=== PATIENT | female | born 1965 | race Caucasian/White ===

== ENCOUNTER → 2020-05-04 11:58 | Outpatient (BNVA) | payer SELFPAY | PROVIDERS: Visit Provider Nurse Practitioner | DX: E03.9 Hypothyroidism, unspecified (principal); I10 Essential (primary) hypertension | CPT/HCPCS: 80053; 80061; 84443 ==

== ENCOUNTER → 2020-05-21 10:50 | Outpatient (BNVA) | payer OTHER, SELFPAY | PROVIDERS: Visit Provider Nurse Practitioner Family | DX: Z20.822 Contact with and (suspected) exposure to COVID-19 (principal) | CPT/HCPCS: 87635 ==

== ENCOUNTER 2020-10-16 15:25 | Outpatient (CLI) | payer OTHER, SELFPAY ==
--- NOTE | 2020-10-16 15:32 | MM_ITS ---
WS: [id number] BILATERAL SCREENING DIGITAL MAMMOGRAM WITH CAD HISTORY: SCREENING COMPARISON: 09/13/2016 Bilateral CC and MLO views submitted. Computer aided detection analyzed. Breast composition: There are scattered areas of fibroglandular density. No suspicious masses, microc alcifications or architectural distortion. MM/[id number] IMPRESSION: BI-RADS: 1-Negative FOLLOW UP: 1 Year Follow-up
== END 2020-10-16 15:26 | disposition home or self-care (01) ==
LOC: RADSHAW 15:29
PROVIDERS: Visit Provider Nurse Practitioner
DX: Z12.31 Encounter for screening mammogram for malignant neoplasm of breast (principal)
CPT/HCPCS: 77067

== ENCOUNTER → 2021-01-26 14:20 | Outpatient (BNVA) | payer SELFPAY | PROVIDERS: PCP Nurse Practitioner; Visit Provider Nurse Practitioner | DX: I10 Essential (primary) hypertension (principal); R74.8 Abnormal levels of other serum enzymes; J98.01 Acute bronchospasm | CPT/HCPCS: 80053; 80061; 84443; 86705; 86706; 86709; 86803; 87340 ==

== ENCOUNTER → 2021-05-18 15:14 | Outpatient (BNVA) | payer OTHER, SELFPAY | PROVIDERS: PCP Nurse Practitioner; Visit Provider Nurse Practitioner Family | DX: Z20.822 Contact with and (suspected) exposure to COVID-19 (principal) | CPT/HCPCS: 87635 ==

== ENCOUNTER 2024-03-06 19:48 | Inpatient (IN) | payer SELFPAY ==
[2024-03-06 19:49] VITALS: BP 163/107; PULSE 68; RESP 18; TEMP 37.1; O2SAT 100; BMI 28.0
--- NOTE | 2024-03-06 20:13 | ED.C_ITS ---
HPI - Psych 2 General: Chief Complaint: Psychiatric Symptoms Stated Complaint: MHE Time Seen by Provider: 03/06/24 19:51 History of Present Illness: 58-year-old female with a history of hyp ertension who presents to the emergency room with psychiatric issues. She presents by ambulance. Her had called the ambulance. She is very paranoid and scared. Apparently she has been hallucinating. There is no documented history of any kind of psychiatric issues. states that she had had some short-term memory issues but recently had been functioning well doing housecleaning and other daily living things. They recently went to [place] and she had not taken her thyroid medication for a few days. Here in the emergency room she is very agitated. She is intent that she does not want to go on a roommate but rather room 7. She is very paranoid. Difficult to obtain any other history from. Related Data Previous Rx's Medication Instructions Recorded albuterol sulfate 90 mcg/actuation 2 puff inhalation Q6H PRN 01/01/24 aerosol inhaler shortness of breath or wheezing #8.5 grams budesonide-formoterol HFA 160 2 puff inhalation Q12H #10.2 grams 01/01/24 mcg-4.5 mcg/actuation aerosol inhaler (Symbicort) inhalational spacing device #1 ea 01/01/24 (Aerochamber MV spacer) losartan 100 1 tab PO DAILY #90 tabs 01/01/24 mg-hydrochlorothiazide 25 mg tablet thyroid (pork) 90 mg tablet 90 mg PO DAILY #90 tabs 01/01/24 ([place] Thyroid) Allergies Allergy/AdvReac Type Severity Reaction Status Date / Time No Known Allergies Allergy Verified 01/01/24 14:56 Review of Systems 2 General: Reports: ROS unobtainable due to mental status PFSH ED 2 PFSH: Medical History Condyloma acuminatum due to human papillomavirus (HPV) Essential (primary) hypertension Hypothyroidism Skin cancer of nose three times/2017 Basal and Squamous Skin cancer of lip 2018 Surgical History History of cardiovascular stress test 2017 in [facility] History of tonsillectomy History of hysterectomy Left cervix and ovaries Family History Grandmother Hyperthyroidism Other Cancer Hypertension Denies family history of Diabetes Clotting disorder Dementia Chronic kidney disease (CKD) Social History Smoking and tobacco/nicotine status: never used tobacco/nicotine Second hand smoke exposure: No Alcohol intake: current Alcohol intake frequency: 0-2 Drinks per Day Alcohol type: wine Substance/Drug Use: never Adopted: No Caregiver/support person: No Lives independently: Yes Household members: spouse Housing: House Marital status: Number of children: 0 Number of grandchildren: 0 service: No Current occupational status: unemployed Do you think of yourself as: Straight/Heterosexual Current gender identity: Female Physical Exam 2 Narrative: EXAM NARRATIVE: General: Alert. no acute distress Skin: Warm, dry Head: Normocephalic, atraumatic. Neck: Supple, trachea midline. Eye: Extraocular movements are intact. Ears, nose, mouth and throat: Oral mucosa moist. Cardiovascular: Regular rate and rhythm, Normal peripheral perfusion. Respiratory: Lungs are clear to auscultation, respirations are non-labored, breath sounds are equal, Symmetrical chest wall expansion. Gastrointestinal: Soft, Nontender, Non distended, Normal bowel sounds. Musculoskeletal: Normal ROM, no deformity. Neurological: Unable to assess orientation, No focal neurological deficit observed. Psychiatric: Patient seems somewhat confused. Paranoid. Odd affect. Course 2 Vital Signs: Vital signs: Vital Signs Temperature 98.7 F 03/06/24 19:49 Pulse Rate 68 03/06/24 19:49 Respiratory Rate 18 03/06/24 19:49 Blood Pressure 163/107 03/06/24 19:49 Pulse Oximetry 100 03/06/24 19:49 Oxygen Delivery Me thod Room Air 03/06/24 19:49 MDM - Psych Medical Decision Making Medical decision making: Differential diagnosis for patient with reported psychosis with plan for psychiatric admission including but not limited to and based on the above HPI, review of systems and physical exam: concerns for infection, alcohol intoxication, cardiac issues or other medical problems prior to psychiatric admission. Orders placed to evaluate differential diagnosis based on the above differential, HPI and physical exam labwork, ekg ordered to evaluate the pathologies and to clear the patient medically prior to psychiatric admission CT head: No acute intracranial process. no intracranial hemorrhage, no evidence of infarct. no evidence of acute fracture.This was reviewed and interpreted by myself the ER physician. Lab Review: Laboratory results were reviewed and interpreted by myself the emergency room physician. - Medically cleared. - EKG shows no ischemic changes. - Blood alcohol level is negative, as well as salicylate and Tylenol. - Drug screen is negative - No signs of infection, urinalysis clear and white count is not elevated - No anemia. - BUN and creatinine are within normal limits. I reviewed the patient's medical record. Consultation: I spoke with Dr. Hayes who agrees to admission of the patient. No beds today but there will be some tomorrow so we will hold here in the emergency room until room is clear. Assessment and plan: Acute psychosis Paranoia Hallucinations -Admission to neuropsychiatric unit for continued evaluation and treatment. - All lab work was reviewed and interpreted personally by myself, the ER physician - Evaluation and treatment of this problem were appropriate in the emergency setting Lab Data 03/06/24 21:34 03/06/24 21:[address] 03/06/24 21:40 IMPRESSION: No acute intracranial abnormality. Laboratory Results WBC 8.74 10^3/uL (3.29-11.43) 03/06/24 21: RBC 5.00 10^6/uL (3.85-5.65) 03/06/24 21:34 Hgb 14.90 g/dL (11.27-16.99) 03/06/24 21:34 Hct 45.4 % (36-47) 03/06/24 21: MCV 90.8 fl (85-98) 03/06/24 21:34 MCH 29.8 pg (27-33) 03/06/24 21: MCHC 32.8 g/dL (30-55) 03/06/24 21: RDW 12.4 % (12.1-15.1) 03/06/24 21:34 Plt Count 304 10^3/cmm (157-399) 03/06/24 21:34 MPV 10.1 fL (7.4-10.4) 03/06/24 21: Neut % (Auto) 75.0 % 03/06/24 21:34 Lymph % (Auto) 16.8 % 03/06/24 21:34 Trigg % (Auto) 6.5 % 03/06/24 21:34 Eos % (Auto) 0.9 % 03/06/24 21:34 Baso % (Auto) 0.5 % 03/06/24 21:34 Neut # (Auto) 6.55 10^3/uL (1.8-7.7) 03/06/24 21:34 Lymph # (Auto) 1.5 10^3/uL (0.8-4.8) 03/06/24 21:34 Trigg # (Auto) 0.6 10^3/uL (0.2-0.9) 03/06/24 21: Eos # (Auto) 0.1 10^3/uL (0.0-0.8) 03/06/24 21: Baso # (Auto) 0.0 10^3/uL (0.0-0.1) 03/06/24 21:34 Nucleated RBC % (auto) 0 % 03/06/24 21:34 Nucleated RBCs # 0.0 /100WBC 03/06/24 21:34 Sodium 137 mmol/L (136-145) 03/06/24 21:34 Potassium 4.3 mmol/L (3.5-5.1) 03/06/24 21:34 Chloride 95 mmol/L (98-107) L 03/06/24 21:34 Carbon Dioxide 33 mmol/L (22-29) H 03/06/24 21:34 Anion Gap 13.3 (5-19) 03/06/24 21:34 BUN 8 mg/dL (6-20) 03/06/24 21:34 Creatinine 0.7 mg/dL (0.5-0.9) 03/06/24 21:34 GFR Calculation 85.6 mL/min (90-130) L 03/06/24 21:34 Glucose 152 mg/dL (65-115) H 03/06/24 21:34 Calculated Osmolality 285 mOsm/kg (285-295) 03/06/24 21:34 Calcium 9.6 mg/dL (8.5-10.5) 03/06/24 21:34 Total Bilirubin 0.4 mg/dL (0.15-1.2) 03/06/24 21:34 AST 28 U/L (0-32) 03/06/24 21:34 ALT 31 U/L (0-33) 03/06/24 21:34 Alkaline Phosphatase 110 U/L (35-105) H 03/06/24 21:34 Total Protein 7.3 g/dL (6.6-8.7) 03/06/24 21:34 Albumin 4.6 g/dL (3.5-5.2) 03/06/24 21:34 Globulin 2.7 g/dL (1.3-4.6) 03/06/24 21:34 TSH 3.88 uIU/mL (0.27-4.20) 03/06/24 21:34 Urine Color Yellow (Yellow) 03/06/24 20: Urine Appearance Clear (CLEAR) 03/06/24 20: Urine pH 7.5 (5-7) 03/06/24 20: Ur Specific Nelson 1.007 (1.005-1.030) 03/06/24 20: Urine Protein Negative (Negative) 03/06/24 20: Urine Glucose (UA) Negative (Normal) 03/06/24 20: Urine Ketones Negative (Negative) 03/06/24 20: Urine Blood Negative (Negative) 03/06/24 20: Urine Nitrate Negative (Negative) 03/06/24 20: Urine Bilirubin Negative (Negative) 03/06/24 20: Urine Urobilinogen 1.0 mg/dL (Negative) 03/06/24 20: Ur Leukocyte Esterase Negative (Negative) 03/06/24 20: Urine RBC 0-2 /hpf (0-2) 03/06/24 20: Urine WBC 0-5 /hpf (0-5) 03/06/24 20: Ur Squamous Epith Cells 0-5 /hpf (0-5) 03/06/24 20: Amorphous Sediment Not Reportable 03/06/24 20: Urine Bacteria None seen /hpf (NONE) 03/06/24 20: Hyaline Casts 0-4 /lpf H 03/06/24 20: Salicylates 0.4 mg/dL (3-10) L 03/06/24 21: Urine Opiates Screen Negative ng/mL (Negative) 03/06/24 20:26 Acetaminophen < 5.0 ug/mL (10-30) L 03/06/24 21:34 Ur Barbiturates Screen Negative ng/mL (Negative) 03/06/24 20:26 Ur Phencyclidine Scrn Negative ng/mL (Negative) 03/06/24 20:26 Ur Amphetamines Screen Negative ng/mL (Negative) 03/06/24 20:26 U Benzodiazepines Scrn Negative ng/mL (Negative) 03/06/24 20:26 Urine Cocaine Screen Negative ng/mL (Negative) 03/06/24 20:26 U Marijuana (THC) Screen Negative ng/mL (Negative) 03/06/24 20:26 Ethyl Alcohol < 10 mg/dL (0-10) 03/06/24 21:34 All radiology interpretation(s) finalized by discharge Discharge Plan Discharge Patient Disposition: Admitted As Inpatient Admit Provider: Marcos Hayes Clinical Impression: Acute psychosis, Acute paranoia Condition: Stable Coding Level of Care Code ED Glove Cuffer for Chintan Brothers
[2024-03-06 20:36] LABS: Bilirubin Urine Negative (Negative); Blood Urine Negative (Negative); Glucose Urine UA Negative (Normal); Ketones Urine Negative (Negative); Leukocyte Esterase Urine Negative (Negative); Nitrate Urine Negative (Negative); Protein Urine Negative (Negative); Specific Gravity, Urine 1.007 (1.005-1.030); Urine Appearance Clear (CLEAR); Urine Color Yellow (Yellow); pH Urine 7.5 (5-7)
[2024-03-06 20:38] LABS: Bacteria Urine None Seen /hpf; Hyaline Casts Urine 0-4 /lpf; RBC Urine 0-2 /hpf (0-2); Squamous Epithelial Cell Urine 0-5 /hpf (0-5); WBC Urine 0-5 /hpf (0-5)
[2024-03-06 20:44] LABS: Amphetamines Screen Urine Negative (Negative); Barbiturates Screen Urine Negative (Negative); Benzodiazepines Screen Urine Negative (Negative); Cocaine Screen Urine Negative (Negative); Opiate Screen Urine Negative (Negative); PCP Screen Urine Negative (Negative); THC Screen Urine Negative (Negative)
[2024-03-06] MEDS: LORazepam 2 mg/mL INJ 1 mL IM (21:17)
[2024-03-06] MEDS: water for injection-sterile 10 ML 1.2 ML (21:21)
--- NOTE | 2024-03-06 21:33 | PC.NURSE ---
this rn spoke with on the phone. told this RN that the patient has had increasing paranoia the last 2 days with insomnia. per , pt has only had 1 episode requiring psychiatric care 20 years ago in [place]. pt takes a thyroid pill and losartan per . he states she is slow at processing things but can cook, clean, and check the mail as normal. she did not take her thyroid pill for 5 days while in [place] per . notified of conversation.
--- NOTE | 2024-03-06 21:40 | CTR_ITS ---
PROCEDURE INFORMATION: Exam: CT Head Without Contrast Exam date and time: 03/06/2024 9:50 PM Age: 58 years old Clinical indication: Altered mental status/memory loss; Additional info: Encephalopathy, altered mental status TECHNIQUE: Imaging protocol: Computed tomography of the head without contrast. Radiation optimization: All CT scans at this facility use at least one of these dose optimization techniques: automated exposure control; mA and/or kV adjustment per patient size (includes targeted exams where dose is matched to clinical indication); or iterative reconstruction. COMPARISON: No relevant prior studies available. RADIATION DOSE METRICS: Total DLP (mGy-cm): 1149.13 FINDINGS: Brain: No acute intracranial abnormality. Cerebral ventricles: No ventriculomegaly. Paranasal sinuses: Visualized sinuses are unremarkable. No fluid levels. Mastoid air cells: Visualized mastoid air cells are well aerated. Bones: Unremarkable. No acute fracture. Soft tissues: Unremarkable. CT/CT head wo con* [id number] IMPRESSION: No acute intracranial abnormality.
[2024-03-06 21:41] LABS: Basophils % 0.5 %; Eosinophils # 0.1 10^3/uL (0.0-0.8); Eosinophils % 0.9 %; Hematocrit 45.4 % (36-47); Lymphocytes # 1.5 10^3/uL (0.8-4.8); Lymphocytes % 16.8 %; Mean Corpuscular HGB Conc 32.8 g/dL (30-55); Mean Corpuscular Hemoglobin 29.8 pg (27-33); Mean Corpuscular Volume 90.8 fl (85-98); Mean Platelet Volume 10.1 fL (7.4-10.4); Monocytes # 0.6 10^3/uL (0.2-0.9); Monocytes % 6.5 %; Neutrophils # 6.55 10^3/uL (1.8-7.7); Nucleated Red Blood Cells % 0 %; Platelet Count 304 10^3/cmm (157-399); Red Cell Distribution Width 12.4 % (12.1-15.1); White Blood Count 8.74 10^3/uL (3.29-11.43)
[2024-03-06 22:11] LABS: Acetaminophen < 5.0 ug/mL (10-30); Alanine Aminotransferase 31 U/L (0-33); Albumin Level 4.6 g/dL (3.5-5.2); Alcohol Level < 10 mg/dL (0-10); Alkaline Phosphatase 110 U/L (35-105); Anion Gap 13.3 (5-19); Aspartate Amino Transferase 28 U/L (0-32); Blood Urea Nitrogen 8 mg/dL (6-20); Calcium 9.6 mg/dL (8.5-10.5); Carbon Dioxide 33 mmol/L (22-29); Chloride 95 mmol/L (98-107); Creatinine Clr Calc Pharmacy 101.3532; Globulin 2.7 g/dL (1.3-4.6); Glomerular Filtration Rate 85.6 mL/min (90-130); Glucose 152 mg/dL (65-115); Osmolality Calculated 285 mOsm/kg (285-295); Potassium 4.3 mmol/L (3.5-5.1); Salicylate 0.4 mg/dL (3-10); Sodium 137 mmol/L (136-145); Total Bilirubin 0.4 mg/dL (0.15-1.2); Total Protein 7.3 g/dL (6.6-8.7)
[2024-03-06 22:19] LABS: Thyroid Stimulating Hormone 3.88 uIU/mL (0.27-4.20)
--- NOTE | 2024-03-06 23:11 | PC.NURSE ---
96 Hour Involuntary Patient Hold Rights have been discussed with the patient and a copy of the same has been provided to her. Senior Business Analyst Bebe Estes was present at bedside at the time of presentation of Rights.
[2024-03-07] VITALS (7 sets, daily range): BP systolic 135–152; BP diastolic 71–101; PULSE 65–79; RESP 14–18; TEMP 36.3–36.7; O2SAT 97–99
--- NOTE | 2024-03-07 09:09 | PC.PHAR ---
Patient states she is no longer taking the Albuterol inhALER OR THE sYMBICORT THAT THEY MAKE HER SICK . pATIENT ALSO STATES she is allergic to aerosols and smoke .
--- NOTE | 2024-03-07 17:42 | P.NPUHP_ITS ---
Providers/Chief Complaint 2 Admitting Physician: Marcos Hayes MD Primary Care Provider: CARMEN Armijo Chief Complaint: MHE HPI NPU History of Present Illness oLrna Schmitz is a 58 year old female who presented to the emergency department with the following report: Chief Complaint: Psychiatric Symptoms Stated Complaint: MHE Time Seen by Provider: 03/06/24 19:51 History of Present Illness: 58-year-old female with a history of hypertension who presents to the emergency room with psychiatric issues. She presents by ambulance. Her had called the ambulance. She is very paranoid and scared. Apparently she has been hallucinating. There is no documented history of any kind of psychiatric issues. states that she had had some short-term memory issues but recently had been functioning well doing housecleaning and other daily living things. They recently went to [place] and she had not taken her thyroid medication for a few days. Here in the emergency room she is very agitated. She is intent that she does not want to go on a roommate but rather room 7. She is very paranoid. Difficult to obtain any other history from. She was admitted to the neuropsychiatric unit for definitive treatment of those issues. She is unknown to [facility] psychiatry through inpatient or outpatient mental health services. She presented today as a very poor historian and unable to provide any significant history. The only history she was able to provide was the fact that she was having what appears to be auditory hallucinations at home and she was hearing voices outside of her front and back door and not really knowing what to do with those experiences. She identified the fact that she is unclear what was going on and could not give any other information other than the fact that she does live at home with her she reports that she has never had an experience like this before. She did give us permission to reach out to her to make sure that we can get some additional information about what led to this episode. Meds NPU Home Medications Medication Instructions Recorded Confirmed Last Taken Type inhalational spacing device #1 ea 01/01/24 03/07/24 Unknown Rx (Aerochamber MV spacer) losartan 100 1 tab PO DAILY #90 tabs 01/01/24 03/07/24 03/06/24 Rx mg-hydrochlorothiazide 25 mg tablet thyroid (pork) 90 mg tablet 90 mg PO DAILY #90 tabs 01/01/24 03/07/24 03/06/24 Rx ([place] Thyroid) mecobalamin (vitamin B12) 1,000 1,000 mcg PO DAILY 03/07/24 03/07/24 Unknown History mcg chewable tablet (B12 Active) Allergies Allergy/AdvReac Type Severity Reaction Status Date / Time No Known Allergies Allergy Verified 01/01/24 14:56 PFSH NPU 2 PFSH: Medical History Condyloma acuminatum due to human papillomavirus (HPV) Essential (primary) hypertension Hypothyroidism Skin cancer of nose three times/2017 Basal and Squamous Skin cancer of lip 2018 Surgical History History of cardiovascular stress test 2017 in [facility] History of tonsillectomy History of hysterectomy Left cervix and ovaries Family History Grandmother Hyperthyroidism Other Cancer Hypertension Denies family history of Diabetes Clotting disorder Dementia Chronic kidney disease (CKD) Social History Smoking and tobacco/nicotine status: never used tobacco/nicotine Second hand smoke exposure: No Alcohol intake: current Alcohol intake frequency: 0-2 Drinks per Day Alcohol type: wine Substance/Drug Use: never Adopted: No Caregiver/support person: No Lives independently: Yes Household members: spouse Housing: House Marital status: Number of children: 0 Number of grandchildren: 0 service: No Current occupational status: unemployed Do you think of yourself as: Straight/Heterosexual Current gender identity: Female Mental Status Exam 2 MSE Comments: This is a tall overweight versus obese white female in hospital scrubs with limited grooming and limited eye contact. No abnormal movements except for psychomotor retardation. Mostly uncooperative with exam in mild to moderate distress. Speech was limited and decreased rate and volume. Mood described as okay affect extremely guarded. Thought process linear. Thought content: Patient denied suicidal or homicidal ideation, there were no delusions reported but paranoid or persecutory delusions noted, she did not report auditory or visual hallucinations but did report hearing voices prior to being admitted. Attention and concentration were limited secondary to being internally preoccupied. Memory appeared mostly reliable but no more formally tested. She was alert and oriented to person and place. Insight, judgment and impulse control are all impaired. Vitals/I&O/Wt Last Vital Signs Temp 97.4 F L 03/07/24 14:00 Pulse 78 03/07/24 14:00 Resp 16 03/07/24 14:00 BP 141/89 03/07/24 14:00 Pulse Ox 98 03/07/24 14:00 O2 Del Method Room Air 03/07/24 12:49 Weight last 48 hrs Weight 86.183 kg Data NPU 03/06/24 21:34 03/06/24 21:34 A&P Assessment and plan (1) Acute psychosis: (2) Acute paranoia: (3) Essential (primary) hypertension: (4) Raynaud's phenomenon: (5) Hypothyroidism: Qualifiers: Hypothyroidism type: other Qualified Code(s): E03.8 - Other specified hypothyroidism Plan This is a 58-year-old white female with no known history of psychiatric illness who presents with paranoia and clear psychosis of unknown etiology. Will need to explore her thyroid disease to make sure it is not the cause or contributing factor to this presentation. 1. Continue current medication. Will consider initiating antipsychotic. 2. Continue every 15 minute checks for safety. 3. Encourage individual, group and milieu therapy. 4. Obtain collateral information hopefully from . 5. Continue to consider physical medicine options for the psychosis. Involuntary Hold Information 2 96 Hour Hold: 96 Hour Involuntary Admission: Yes 96 Hour Hold Ending Date: 03/12/24 96 Hour Hold Ending Time: 21:11 Attestations NPU 2 Medical Necessity Statement*: Inpatient hospitalization is medically necessary and the clinically appropriate intervention at this time. We will monitor/initiate medications and make changes as indicated. She will be in the hospital for over 2 midnights. Likely length of stay 7 to 10 days. Coding Level of Care Code Acute Code for Chg Fwd Diagnoses Acute psychosis F23 Acute paranoia F22 Essential (primary) hypertension I10 Raynaud's phenomenon I73.00 Other specified hypothyroidism E03.8 Hypothyroidism type: other
[2024-03-07] MEDS: hyDROXYzine 25 mg Capsule 50 MG PO (21:31)
[2024-03-07] MEDS: trazodone 50 mg Tablet PO (21:31)
[2024-03-08 06:00] VITALS: RESP 16
--- NOTE | 2024-03-08 06:17 | PC.NURSE ---
pt had a rough night pt is resting pt resp are at 16 nurse notified
[2024-03-08 08:45] VITALS: BP 142/86
[2024-03-08] MEDS: losartan 50 mg Tablet 100 MG PO (08:45)
[2024-03-08] MEDS: thyroid 60 mg Tablet 90 MG PO (08:45)
[2024-03-08] MEDS: hydroCHLOROthiazide 25 mg Tablet PO (08:46)
[2024-03-08] MEDS: hyDROXYzine 25 mg Capsule 50 MG PO ×2 (08:46→21:38)
--- NOTE | 2024-03-08 09:51 | PC.NURSE ---
IN ROOM WANDERING AROUND, GOING BACK AND FORTH TO DOOR THEN BACK TO SINK. CONFUSION IS NOTED. PT RESPONDS TO HER NAME AND STATED THE YEAR TO BE 2023, WHEN ASKED WHAT THE MONTH AND DAY OF THE WEEK IS PT STATED WELL I DON'T HAVE A CALENDER. IT TOOK PT SEVERAL MINUTES TO TAKE HER MORNING MEDICATIONS. PT KEPT MAKING STATEMENTS THAT THESE AREN'T COATED, I NEED THEM TO BE COATED. EDUCATION PROVIDED THAT NOT ALL THE MEDICATIONS COME COATED. PT SPIT OUT ONE OF HER PILLS THAT WAS NOT ABLE TO BE IDENTIFIED. DENIES SI /HI AND AVH AT THIS TIME. REPORTS SHE DID NOT SLEEP. STATED GOAL FOR THE DAY IS TO GET A CUP OF COFFEE. RATES ANXIETY 10/10 AND DEPRESSION 0/10. VISTARIL 50 MG WAS GIVEN ORDERED FOR INCREASED ANXIETY. AFFECT IS NOTED TO BE VERY FLAT AND PT IS SLOW TO RESPOND TO QUESTIONS DUE TO CONFUSION. RATES BACK PAIN 6/10 BUT DECLINES ANY TYLENOL, STATING I TAKE THAT BUT I CAN'T TAKE THAT. ALL QUESTIONS ANSWERED AND SUPPORT WAS VOICED.
[2024-03-08 14:00] VITALS: BP 120/74; PULSE 64; RESP 17; TEMP 36.6; O2SAT 97
[2024-03-08] MEDS: haloperidol inj 5 mg/mL INJ 1 mL IM (14:02)
[2024-03-08] MEDS: LORazepam 2 mg/mL INJ 1 mL IM (14:02)
[2024-03-08] MEDS: diphenhydrAMINE 50 mg/mL SDV 1mL IM (14:03)
--- NOTE | 2024-03-08 14:06 | PC.NURSE ---
Addendum entered and electronically signed by Juju Day RN 03/08/24 18:33: PT HAS CONTINUED TO REST SINCE APPROXIMATELY 1530 IN ROOM WITH EYES CLOSED. ENCOURAGED TO GET UP TO EAT DINNER BUT STATES SHE WOULD RATHER SLEEP. VITALS OBTAINED AND ARE FOLLOWS 120/74, 64, 17, 97.8 AND 97% ON RA. PT CURRENTLY RESTING WITH EYES CLOSED IN NO ACUTE DISTRESS. Original Note: PT OBSERVED MULTIPLE TIMES THROUGHOUT THE SHIFT EXIT SEEKING AND CHECKING DOORS. AT APPROXIMATELY 1355 PT WAS AT THE DOOR LOOKING OUT AND PUSHING ON THE DOOR. PT STATES I WANT TO LEAVE, LET ME OUT. PT THEN WAS HEARD SCREAMING VERY LOUDLY. PT KEPT YELLING AHHHHAHHH. AND THEN WOULD KEPT SCREAMING. STAFF RESPONDED AND ASKED PT IF SHE WOULD TAKE MEDICATION BUT PT JUST LOOKED AT NURSES SAYING I JUST WANT TO GO. PT WAS EDUCATED THAT THE DR IS THE ONLY ONE THAT CAN LET HER DISCHARGE. PT CONTINUED TO SCREAM. THIS RN WENT TO GET MEDICATIONS AND THE OTHER TWO RN'S STAYED WITH PT SO SHE WOULD FEEL SAFE. SECURITY HERE FOR STAND BY ASSIST IF NEEDED. AT 1403 THIS RN ADMINISTERED ATIVAN 2MG AND HALDOL 5MG IM TO RIGHT DELTOID AND BAKARI RN GAVE BENADRYL 50 MG IM TO LEFT DELTOID. PT SAT ON BENCH AND TOOK MEDICATIONS WITHOUT DIFFICULTY. PT DID HOLD JODI RN'S HAND FOR SUPPORT BUT TOOK BOTH MEDICATIONS WILLINGLY. PT STATED SHE WAS COLD SO RN WENT TO GET SWEATSHIRT. PT WAS GIVEN THE SWEATSHIRT AND WENT TO GROUP AND LAID THE SWEATSHIRT IN HER LAP AND DID NOT PUT IT ON. SUPPORT VOICED.
--- NOTE | 2024-03-08 16:49 | P.NPUPN_ITS ---
Subjective NPU 2 Subjective: Patient presented today continuing to have difficulty with her psychotic symptoms. Earlier in the day she had some screaming fits per staff reports and direct observation. She continued to have significant confusion and psychosis and appeared guarded per staff reports and direct observation. Attempted to reach without success and told patient we would continue to try to reach him to get some collateral information. Discussed the need to start her on an antipsychotic including the risks, benefits and alternatives but at this point she was resistant to any treatment and was even resistant to conversation with this customs entry writer. Mental Status Exam 2 MSE Comments: This is a tall overweight versus obese white female in hospital scrubs with limited grooming and limited eye contact. No abnormal movements except for psychomotor retardation. Mostly uncooperative with exam in mild to moderate distress. Speech was limited and decreased rate and volume. Mood described as okay affect extremely guarded. Thought process linear. Thought content: Patient denied suicidal or homicidal ideation, there were no delusions reported but paranoid or persecutory delusions noted, she did not report auditory or visual hallucinations but did report hearing voices prior to being admitted. Attention and concentration were limited secondary to being internally preoccupied. Memory appeared mostly reliable but no more formally tested. She was alert and oriented to person and place. Insight, judgment and impulse control are all impaired. Vitals/I&O/Wt Last Vital Signs Temp 97.8 F 03/08/24 14:00 Pulse 64 03/08/24 14:00 Resp 17 03/08/24 14:00 BP 120/74 03/08/24 14:00 Pulse Ox 97 03/08/24 14:00 O2 Del Method Room Air 03/08/24 14:00 Weight last 48 hrs Weight 86.183 kg Data NPU 03/06/24 21:34 03/06/24 21:34 A&P Assessment and plan (1) Acute psychosis: (2) Acute paranoia: (3) Essential (primary) hypertension: (4) Raynaud's phenomenon: (5) Hypothyroidism: Qualifiers: Hypothyroidism type: other Qualified Code(s): E03.8 - Other specified hypothyroidism Plan This is a 58-year-old white female with no known history of psychiatric illness who presents with paranoia and clear psychosis of unknown etiology. Will need to explore her thyroid disease to make sure it is not the cause or contributing factor to this presentation. 1. Continue current medication. Will consider initiating antipsychotic. 2. Continue every 15 minute checks for safety. 3. Encourage individual, group and milieu therapy. 4. Obtain collateral information hopefully from . 5. Continue to consider physical medicine causes for the psychosis. Involuntary Hold Information 2 96 Hour Hold: 96 Hour Involuntary Admission: Yes 96 Hour Hold Ending Date: 03/12/24 96 Hour Hold Ending Time: 21:11 Attestations NPU 2 Medical Necessity Statement*: Inpatient hospitalization is medically necessary and the clinically appropriate intervention at this time. We will monitor/initiate medications and make changes as indicated. Likely length of stay 7 to 10 days. Coding Level of Care Code Acute Code for Chg Fwd Diagnoses Acute psychosis F23 Acute paranoia F22 Essential (primary) hypertension I10 Raynaud's phenomenon I73.00 Other specified hypothyroidism E03.8 Hypothyroidism type: other
--- NOTE | 2024-03-08 17:17 | PC.OT ---
SPOKE WITH EVALUATING OT FOR TREATMENT PLAN GOALS AND ALL GOALS ARE APPROPRIATE.
[2024-03-08 18:51] VITALS: BP 140/89; PULSE 65; RESP 16; TEMP 36.6; O2SAT 97
[2024-03-08] MEDS: OLANZapine 5 mg ODT PO (21:38)
[2024-03-08] MEDS: trazodone 50 mg Tablet PO (21:38)
[2024-03-08 22:00] VITALS: BP 149/82; PULSE 73; RESP 18; TEMP 36.6; O2SAT 96
[2024-03-09 06:00] VITALS: BP 123/90; PULSE 60; RESP 16; TEMP 36.5; O2SAT 99
[2024-03-09 08:39] VITALS: BP 123/90
[2024-03-09] MEDS: thyroid 60 mg Tablet 90 MG PO (08:39)
[2024-03-09] MEDS: hydroCHLOROthiazide 25 mg Tablet PO (08:39)
[2024-03-09] MEDS: haloperidol 5 mg Tablet PO (08:39)
[2024-03-09] MEDS: losartan 50 mg Tablet 100 MG PO (08:39)
--- NOTE | 2024-03-09 09:17 | PC.NURSE ---
Morning assessment Patient responses are delayed. Patient questioning each of her medications. Patient did eventually take them, with applesauce. Patient talking about her experiences in [place]. Following administration of medications, patient returned to room. Patient said that she is feeling groggy.
[2024-03-09 09:35] LABS: Basophils % 0.4 %; Eosinophils # 0.2 10^3/uL (0.0-0.8); Eosinophils % 2.7 %; Hematocrit 41.9 % (36-47); Lymphocytes # 1.5 10^3/uL (0.8-4.8); Lymphocytes % 21.7 %; Mean Corpuscular HGB Conc 32.5 g/dL (30-55); Mean Corpuscular Volume 92.5 fl (85-98); Mean Platelet Volume 10.2 fL (7.4-10.4); Monocytes # 0.5 10^3/uL (0.2-0.9); Monocytes % 7.1 %; Neutrophils # 4.69 10^3/uL (1.8-7.7); Nucleated Red Blood Cells % 0 %; Platelet Count 251 10^3/cmm (157-399); Red Blood Count 4.53 10^6/uL (3.85-5.65); Red Cell Distribution Width 12.7 % (12.1-15.1); White Blood Count 6.91 10^3/uL (3.29-11.43)
[2024-03-09 09:53] LABS: Alanine Aminotransferase 31 U/L (0-33); Alkaline Phosphatase 89 U/L (35-105); Anion Gap 10.9 (5-19); Aspartate Amino Transferase 30 U/L (0-32); Blood Urea Nitrogen 11 mg/dL (6-20); Calcium 9.2 mg/dL (8.5-10.5); Carbon Dioxide 35 mmol/L (22-29); Chloride 99 mmol/L (98-107); Creatinine Clr Calc Pharmacy 78.8303; Globulin 2.3 g/dL (1.3-4.6); Glomerular Filtration Rate 64.1 mL/min (90-130); Glucose 95 mg/dL (65-115); Osmolality Calculated 289 mOsm/kg (285-295); Potassium 4.9 mmol/L (3.5-5.1); Sodium 140 mmol/L (136-145); Total Bilirubin 0.3 mg/dL (0.15-1.2); Total Protein 6.3 g/dL (6.6-8.7)
[2024-03-09 10:09] LABS: Thyroid Stimulating Hormone 7.37 uIU/mL (0.27-4.20)
--- NOTE | 2024-03-09 10:41 | P.NPUPN_ITS ---
Subjective NPU 2 Subjective: Patient presented today reporting that she slept okay. She was continuing to be very isolative and continued to appear guarded and frightful on the unit per staff reports and direct observation. We discussed the risks, benefits and alternatives of a trial of Abilify and she understood and agreed to proceed as is documented in this note. Mental Status Exam 2 MSE Comments: This is a tall overweight versus obese white female in hospital scrubs with limited grooming and limited eye contact. No abnormal movements except for psychomotor retardation. Mostly uncooperative with exam in mild to moderate distress. Speech was limited and decreased rate and volume. Mood described as okay affect extremely guarded. Thought process linear. Thought content: Patient denied suicidal or homicidal ideation, there were no delusions reported but paranoid or persecutory delusions noted, she did not report auditory or visual hallucinations but did report hearing voices prior to being admitted. Attention and concentration were limited secondary to being internally preoccupied. Memory appeared mostly reliable but no more formally tested. She was alert and oriented to person and place. Insight, judgment and impulse control are all impaired. Vitals/I&O/Wt Last Vital Signs Temp 97.9 F 03/09/24 21:06 Pulse 64 03/09/24 21:06 Resp 16 03/09/24 21:06 BP 116/83 03/09/24 21:06 Pulse Ox 99 03/09/24 21:06 O2 Del Method Room Air 03/09/24 21:06 Data NPU 03/09/24 09:20 03/09/24 09:20 A&P Assessment and plan (1) Acute psychosis: (2) Acute paranoia: (3) Essential (primary) hypertension: (4) Raynaud's phenomenon: (5) Hypothyroidism: Qualifiers: Hypothyroidism type: other Qualified Code(s): E03.8 - Other specified hypothyroidism Plan This is a 58-year-old white female with no known history of psychiatric illness who presents with paranoia and clear psychosis of unknown etiology. Will need to explore her thyroid disease to make sure it is not the cause or contributing factor to this presentation. 1. Continue current medication. Will consider initiating antipsychotic. Start Abilify 10 mg p.o. daily. 2. Continue every 15 minute checks for safety. 3. Encourage individual, group and milieu therapy. 4. Obtain collateral information hopefully from . 5. Continue to consider physical medicine causes for the psychosis. Will consider repeating thyroid laboratories with the other labs other than TSH obtained this time. Involuntary Hold Information 2 96 Hour Hold: 96 Hour Involuntary Admission: Yes 96 Hour Hold Ending Date: 03/12/24 96 Hour Hold Ending Time: 21:11 Attestations NPU 2 Medical Necessity Statement*: Inpatient hospitalization is medically necessary and the clinically appropriate intervention at this time. We will monitor/initiate medications and make changes as indicated. Likely length of stay 7 to 10 days. Coding Level of Care Code Acute Code for Chg Fwd Diagnoses Acute psychosis F23 Acute paranoia F22 Essential (primary) hypertension I10 Raynaud's phenomenon I73.00 Other specified hypothyroidism E03.8 Hypothyroidism type: other
[2024-03-09] MEDS: ARIPiprazole 10 mg Tablet PO (11:52)
[2024-03-09 14:00] VITALS: BP 119/79; PULSE 70; RESP 17; TEMP 36.8; O2SAT 98
[2024-03-09 15:14] LABS: Free T4 Free Thyroxine 1.09 ng/dL (0.82-1.77); T3 Free 3.1 PG/ML (2.0-4.4)
[2024-03-09 21:06] VITALS: BP 116/83; PULSE 64; RESP 16; TEMP 36.6; O2SAT 99
[2024-03-09] MEDS: hyDROXYzine 25 mg Capsule 50 MG PO (22:40)
[2024-03-09] MEDS: trazodone 50 mg Tablet PO (22:41)
[2024-03-09] MEDS: OLANZapine 5 mg ODT PO (22:41)
[2024-03-10 06:00] VITALS: BP 127/74; PULSE 60; RESP 18; TEMP 36.4; O2SAT 97; BMI 30.4
[2024-03-10 08:18] VITALS: BP 127/74
[2024-03-10] MEDS: ARIPiprazole 10 mg Tablet PO (08:18)
[2024-03-10] MEDS: haloperidol 5 mg Tablet PO (08:18)
[2024-03-10] MEDS: thyroid 60 mg Tablet 90 MG PO (08:18)
[2024-03-10] MEDS: losartan 50 mg Tablet 100 MG PO (08:18)
[2024-03-10] MEDS: hydroCHLOROthiazide 25 mg Tablet PO (08:18)
--- NOTE | 2024-03-10 09:56 | PC.NURSE ---
Patient's Rock called and said that, on their recent trip to [place], patient may not have consistently taken her armour thyroid medication. also stressed that their trip was very stressful and that the patient does not handle stress well. wants her thyroid to be investigated as a cause of her recent paranoia, etc.
[2024-03-10 14:00] VITALS: BP 113/70; PULSE 59; RESP 16; O2SAT 98
--- NOTE | 2024-03-10 19:26 | P.NPUPN_ITS ---
Subjective NPU 2 Subjective: The patient continued to appear guarded on the milieu. She had continued to report that she was hearing voices and continue to report feeling concerned that others were trying to harm her while she was at home. She had stated that she was hearing voices inside and [place] She had reported no side effects from her current medication. She was compliant and reported no sleep continuity disruption. Mental Status Exam 2 MSE Comments: This is a tall overweight versus obese white female in hospital scrubs with limited grooming and limited eye contact. No abnormal movements except for psychomotor retardation. She was minimally cooperative with exam in mild to moderate distress. Speech was limited and decreased rate and volume. Mood described as okay affect extremely guarded. Thought process linear. Thought content: Patient denied suicidal or homicidal ideation. There was evidence of paranoia and she did appear to be responding to internal stimuli. Attention and concentration were limited secondary to being internally preoccupied. Memory appeared mostly reliable but no more formally tested. She was alert and oriented to person and place. Insight, judgment and impulse control are all impaired. Vitals/I&O/Wt Last Vital Signs Temp 97.6 F 03/10/24 06:00 Pulse 59 L 03/10/24 14:00 Resp 16 03/10/24 14:00 BP 113/70 03/10/24 14:00 Pulse Ox 98 03/10/24 14:00 O2 Del Method Room Air 03/10/24 14:00 03/10/24 03/10/24 03/10/24 06:59 14:59 22:59 Intake Total 240 / 240 Balance 240 / 240 Weight last 48 hrs Weight 93.553 kg Data NPU 03/09/24 09:20 03/09/24 09:20 A&P Assessment and plan (1) Acute psychosis: (2) Acute paranoia: (3) Essential (primary) hypertension: (4) Raynaud's phenomenon: (5) Hypothyroidism: Qualifiers: Hypothyroidism type: other Qualified Code(s): E03.8 - Other specified hypothyroidism Plan This is a 58-year-old white female with no known history of psychiatric illness who presents with paranoia and clear psychosis of unknown etiology. Will need to explore her thyroid disease to make sure it is not the cause or contributing factor to this presentation. 1. Continue current medication. Will consider initiating antipsychotic. Increase abilify 15mg daily. 2. Continue every 15 minute checks for safety. 3. Encourage individual, group and milieu therapy. 4. Obtain collateral information hopefully from . 5. Continue to consider physical medicine causes for the psychosis. Will consider repeating thyroid laboratories with the other labs other than TSH obtained this time. Involuntary Hold Information 2 96 Hour Hold: 96 Hour Involuntary Admission: Yes 96 Hour Hold Ending Date: 03/12/24 96 Hour Hold Ending Time: 21:11 Attestations NPU 2 Medical Necessity Statement*: Inpatient hospitalization is medically necessary and the clinically appropriate intervention at this time. We will monitor/initiate medications and make changes as indicated. Likely length of stay 7 to 10 days. Coding Level of Care Code Acute Code for Chg Fwd Diagnoses Acute psychosis F23 Acute paranoia F22 Essential (primary) hypertension I10 Raynaud's phenomenon I73.00 Other specified hypothyroidism E03.8 Hypothyroidism type: other
[2024-03-10 20:09] VITALS: BP 116/75; PULSE 63; RESP 18; TEMP 36.9; O2SAT 97
[2024-03-10] MEDS: trazodone 50 mg Tablet PO ×2 (21:24→22:27)
[2024-03-10] MEDS: hyDROXYzine 25 mg Capsule 50 MG PO (21:24)
[2024-03-11] MEDS: OLANZapine 5 mg ODT PO (01:22)
[2024-03-11 06:00] VITALS: BP 126/76; PULSE 56; RESP 16; TEMP 37; O2SAT 97
[2024-03-11] MEDS: hyDROXYzine 25 mg Capsule 50 MG PO ×2 (08:35→20:12)
[2024-03-11] MEDS: hydroCHLOROthiazide 25 mg Tablet PO (08:35)
[2024-03-11 08:36] VITALS: BP 126/76
[2024-03-11] MEDS: thyroid 60 mg Tablet 90 MG PO (08:36)
[2024-03-11] MEDS: ARIPiprazole 10 mg Tablet 15 MG PO (08:36)
[2024-03-11] MEDS: losartan 50 mg Tablet 100 MG PO (08:36)
--- NOTE | 2024-03-11 09:29 | PC.NURSE ---
RESTING IN BED AROUSES TO VOICE. PT IS NOTED TO HAVE FLAT AFFECT AND DEPRESSED MOOD. ISOLATES AND WITHDRAWN TO ROOM. PT STATES I JUST WANT TO SLEEP IN WHY WON'T THEY LET ME. RN ASSURED PT SHE COULD GO BACK TO SLEEP AFTER TAKING HER MORNING MEDICATIONS. DENIES PAIN. DENIES SI/HI AND AVH AT THIS TIME. EVASIVE WITH ASSESSMENT. PARANOIA IS OBSERVED. RATES ANXIETY AND DEPRESSION 0/10. STATES SHE HAS NO GOAL. ALL QUESTIONS ANSWERED AND SJUPPORT WAS VOICED.
[2024-03-11 14:00] VITALS: BP 117/84; PULSE 63; RESP 18; TEMP 36.6; O2SAT 94
--- NOTE | 2024-03-11 18:04 | P.NPUPN_ITS ---
Subjective NPU 2 Subjective: 58-year-old female with history of recen t onset of psychosis including paranoia. She continued to report worries about when she may leave here. She reported that she had been for 25 years and reported having struggles with managing her mood at this time but stated that she was not having thoughts of hurting herself or others. She had continued to appear preoccupied and engaging in some conversation with herself on the unit. She had minimized any auditory hallucinations here but stated that she had been hearing sounds outside of her home and stated that it had been causing her some distress. Mental Status Exam 2 MSE Comments: This is a tall overweight versus obese, white female in hospital scrubs with limited grooming and improving eye contact. No abnormal movements except for moderate psychomotor retardation. She was more cooperative with exam in mild to moderate distress. Speech was more productive and decreased in rate and volume. Mood described as bored. Her affect was blunted. Thought process was mostly linear. Thought content: Patient denied suicidal or homicidal ideation. There was evidence of paranoia and she did appear to be responding to internal stimuli. Attention and concentration were limited secondary to being internally preoccupied. Memory appeared mostly reliable but no more formally tested. She was alert and oriented to person and place. Insight, judgment and impulse control are all impaired. Vitals/I&O/Wt Last Vital Signs Temp 98 F 03/11/24 14:00 Pulse 63 03/11/24 14:00 Resp 18 03/11/24 14:00 BP 117/84 03/11/24 14:00 Pulse Ox 94 03/11/24 14:00 O2 Del Method Room Air 03/11/24 06:00 Weight last 48 hrs Weight 93.553 kg Data NPU 03/09/24 09:20 03/09/24 09:20 A&P Assessment and plan (1) Acute psychosis: (2) Acute paranoia: (3) Essential (primary) hypertension: (4) Raynaud's phenomenon: (5) Hypothyroidism: Qualifiers: Hypothyroidism type: other Qualified Code(s): E03.8 - Other specified hypothyroidism Plan This is a 58-year-old white female with no known history of psychiatric illness who presents with paranoia and clear psychosis of unknown etiology. Will need to explore her thyroid disease to make sure it is not the cause or contributing factor to this presentation. 1. Continue current medication. Will consider initiating antipsychotic. Continue abilify 15mg daily. 2. Continue every 15 minute checks for safety. 3. Encourage individual, group and milieu therapy. 4. Obtain collateral information hopefully from . 5. Continue to consider physical medicine causes for the psychosis. Will consider repeating thyroid laboratories with the other labs other than TSH obtained this time. Psychosis appears to be lessening on antipsychotic agent. Involuntary Hold Information 2 96 Hour Hold: 96 Hour Involuntary Admission: Yes 96 Hour Hold Ending Date: 03/12/24 96 Hour Hold Ending Time: 21:11 Attestations NPU 2 Medical Necessity Statement*: Inpatient hospitalization is medically necessary and the clinically appropriate intervention at this time. We will monitor/initiate medications and make changes as indicated. Likely length of stay 3-5 days. Coding Level of Care Code Acute Code for Chg Fwd Diagnoses Acute psychosis F23 Acute paranoia F22 Essential (primary) hypertension I10 Raynaud's phenomenon I73.00 Other specified hypothyroidism E03.8 Hypothyroidism type: other
[2024-03-11] MEDS: trazodone 50 mg Tablet PO (20:12)
[2024-03-11 20:37] VITALS: BP 121/78; PULSE 60; RESP 18; TEMP 36.6; O2SAT 98
[2024-03-12 06:00] VITALS: BP 143/76; PULSE 58; RESP 16; TEMP 36.8; O2SAT 95
[2024-03-12 08:18] VITALS: BP 143/76
[2024-03-12] MEDS: hydroCHLOROthiazide 25 mg Tablet PO (08:18)
[2024-03-12] MEDS: losartan 50 mg Tablet 100 MG PO (08:18)
[2024-03-12] MEDS: ARIPiprazole 10 mg Tablet 15 MG PO (08:19)
[2024-03-12] MEDS: thyroid 60 mg Tablet 90 MG PO (08:19)
[2024-03-12] MEDS: docusate sodium 100 mg Capsule PO (09:15)
[2024-03-12 14:00] VITALS: BP 150/88; PULSE 76; RESP 18; TEMP 36.6; O2SAT 97
--- NOTE | 2024-03-12 16:53 | P.NPUPN_ITS ---
Subjective NPU 2 Subjective: 58-year-old female with history of recen t onset of psychosis including paranoia. Patient had reported feeling less anxious. She had been redirectable and was able to attend groups. She described feeling bored. She had stated that she had been frustrated that her had not come to visit her. She had reported adequate sleep. She reported no side effects from her Abilify. Patient had been unable to describe any acute stressors that had led to her hospitalization here. She had denied any depression at this time. Mental Status Exam 2 MSE Comments: This is a tall overweight versus obese, white female in hospital scrubs with limited grooming and improving eye contact. No abnormal movements except for moderate psychomotor retardation. She was more cooperative with exam in mild to moderate distress. Speech was more productive but still decreased in rate and volume. Mood described as okay Her affect remained blunted. Thought process was mostly linear. Thought content: Patient denied suicidal or homicidal ideation. There was less evidence of paranoia and she did not appear to be responding to internal stimuli. Attention and concentration were limited secondary to being internally preoccupied. Memory appeared mostly reliable but no more formally tested. She was alert and oriented to person and place and time today. Insight was fair. judgment and impulse control are poor. Vitals/I&O/Wt Last Vital Signs Temp 98 F 03/12/24 14:00 Pulse 76 03/12/24 14:00 Resp 18 03/12/24 14:00 BP 150/88 03/12/24 14:00 Pulse Ox 97 03/12/24 14:00 O2 Del Method Room Air 03/12/24 06:00 Data NPU 03/09/24 09:20 03/09/24 09:20 A&P Assessment and plan (1) Acute psychosis: (2) Acute paranoia: (3) Essential (primary) hypertension: (4) Raynaud's phenomenon: (5) Hypothyroidism: Qualifiers: Hypothyroidism type: other Qualified Code(s): E03.8 - Other specified hypothyroidism Plan This is a 58-year-old white female with no known history of psychiatric illness who presents with paranoia and clear psychosis of unknown etiology. Will need to explore her thyroid disease to make sure it is not the cause or contributing factor to this presentation. 1. Continue abilify 15mg daily. 2. Continue every 15 minute checks for safety. 3. Encourage individual, group and milieu therapy. 4. Obtain collateral information hopefully from . 5. Continue to consider physical medicine causes for the psychosis. Will consider repeating thyroid laboratories with the other labs other than TSH obtained this time. Psychosis appears less prominent and likely d/c in 2-3 days. Involuntary Hold Information 2 96 Hour Hold: 96 Hour Involuntary Admission: Yes 96 Hour Hold Ending Date: 03/12/24 96 Hour Hold Ending Time: 21:11 Other Hold: Hold End Date: 03/12/24 Attestations NPU 2 Medical Necessity Statement*: Inpatient hospitalization is medically necessary and the clinically appropriate intervention at this time. We will monitor/initiate medications and make changes as indicated. Likely length of stay 2-3 days. Coding Level of Care Code Acute Code for Chg Fwd Diagnoses Acute psychosis F23 Acute paranoia F22 Essential (primary) hypertension I10 Raynaud's phenomenon I73.00 Other specified hypothyroidism E03.8 Hypothyroidism type: other
[2024-03-12 20:24] VITALS: BP 154/84; PULSE 63; RESP 18; TEMP 36.9; O2SAT 96
[2024-03-12] MEDS: hyDROXYzine 25 mg Capsule 50 MG PO (21:12)
[2024-03-12] MEDS: trazodone 50 mg Tablet PO (21:12)
[2024-03-13 06:00] VITALS: BP 123/69; PULSE 60; RESP 15; TEMP 37.1; O2SAT 96
[2024-03-13 08:20] VITALS: BP 123/69
[2024-03-13] MEDS: losartan 50 mg Tablet 100 MG PO (08:20)
[2024-03-13] MEDS: hydroCHLOROthiazide 25 mg Tablet PO (08:20)
[2024-03-13] MEDS: thyroid 60 mg Tablet 90 MG PO (08:21)
[2024-03-13] MEDS: ARIPiprazole 10 mg Tablet 15 MG PO (08:35)
[2024-03-13 14:00] VITALS: BP 144/84; PULSE 59; RESP 20; TEMP 37.2; O2SAT 96
--- NOTE | 2024-03-13 16:39 | P.NPUPN_ITS ---
Subjective NPU 2 Subjective: 58-year-old female with history of recen t onset of psychosis including paranoia. The patient had appeared less distracted by her thoughts. She had reported that she was no longer feeling scared about returning home. She had been compliant and was able to attend groups without any difficulty. She had reported adequate sleep at this time. She had reported feeling bored. She was reporting no difficulties currently with her memory. She had reported that she was hopeful about returning home tomorrow. She had reported no side effects from Abilify at this time. Patient had denied depression. Mental Status Exam 2 MSE Comments: This is a tall overweight versus obese, white female in hospital scrubs with limited grooming and improving eye contact. No abnormal movements except for mild psychomotor retardation. She was cooperative with exam in mild distress. Speech was more productive with normal volume but some slight increased speech latency. Mood described as good. Her affect appeared brighter. Thought process was linear. Thought content: Patient denied suicidal or homicidal ideation. There was less evidence of paranoia and she did not appear to be responding to internal stimuli. There was no ideas of reference. Attention and concentration were improved. Recent and remote memory was intact today. She was alert and oriented to person and place and time today. Insight was fair. judgment and impulse control was improving. Vitals/I&O/Wt Last Vital Signs Temp 99 F 03/13/24 14:00 Pulse 59 L 03/13/24 14:00 Resp 20 H 03/13/24 14:00 BP 144/84 03/13/24 14:00 Pulse Ox 96 03/13/24 14:00 O2 Del Method Room Air 03/13/24 06:00 Data NPU 03/09/24 09:20 03/09/24 09:20 A&P Assessment and plan (1) Acute psychosis: (2) Acute paranoia: (3) Essential (primary) hypertension: (4) Raynaud's phenomenon: (5) Hypothyroidism: Qualifiers: Hypothyroidism type: other Qualified Code(s): E03.8 - Other specified hypothyroidism Plan This is a 58-year-old white female with no known history of psychiatric illness who presents with paranoia and clear psychosis of unknown etiology. Will need to explore her thyroid disease to make sure it is not the cause or contributing factor to this presentation. 1. Continue abilify 15mg daily. 2. Continue every 15 minute checks for safety. 3. Encourage individual, group and milieu therapy. 4. Obtain collateral information hopefully from . 5. Continue to consider physical medicine causes for the psychosis. Will consider repeating thyroid laboratories with the other labs other than TSH obtained this time. Psychosis appears less prominent and likely d/c in 1-2 days. Involuntary Hold Information 2 96 Hour Hold: 96 Hour Involuntary Admission: Yes 96 Hour Hold Ending Date: 03/12/24 96 Hour Hold Ending Time: 21:11 Other Hold: Hold End Date: 03/12/24 Attestations NPU 2 Medical Necessity Statement*: Inpatient hospitalization is medically necessary and the clinically appropriate intervention at this time. We will monitor/initiate medications and make changes as indicated. Likely length of stay 1-2 days. Coding Level of Care Code Acute Code for Chg Fwd Diagnoses Acute psychosis F23 Acute paranoia F22 Essential (primary) hypertension I10 Raynaud's phenomenon I73.00 Other specified hypothyroidism E03.8 Hypothyroidism type: other
[2024-03-13] MEDS: trazodone 50 mg Tablet PO (20:48)
[2024-03-13] MEDS: hyDROXYzine 25 mg Capsule 50 MG PO (20:48)
[2024-03-13 22:00] VITALS: BP 143/85; PULSE 67; RESP 18; TEMP 36.7; O2SAT 99
[2024-03-14 06:00] VITALS: BP 135/88; PULSE 56; RESP 18; TEMP 37.2; O2SAT 97
[2024-03-14] MEDS: thyroid 60 mg Tablet 90 MG PO (06:19)
[2024-03-14] MEDS: hydroCHLOROthiazide 25 mg Tablet PO (08:52)
[2024-03-14] MEDS: ARIPiprazole 10 mg Tablet 15 MG PO (08:52)
[2024-03-14 08:53] VITALS: BP 135/88
[2024-03-14] MEDS: losartan 50 mg Tablet 100 MG PO (08:53)
[2024-03-14] MEDS: hyDROXYzine 25 mg Capsule 50 MG PO (08:53)
--- NOTE | 2024-03-14 09:35 | PC.NURSE ---
SITTING ON BED, CONTINUES TO HAVE FLAT AFFECT AND DEPRESSED MOOD. PT IS DISCHARGING TODAY AT 1100AM. PT STATES SHE IS READY TO GO AND STATES SHE HAS NO GOAL OTHER THAN TO LEAVE. DENIES SI/HI AND AVH AT THIS TIME. RATES ANXIETY 06/22, VISTARIL 50 MG WAS GIVEN ORDERED FOR ANXIETY. RATES DEPRESSION 05/03. DENIES PAIN. REPORTS SHE SLEPT OKAY. ALL QUESTIONS ANSWERED AND SUPPORT WAS VOICED.
[2024-03-14 11:30] VITALS: BP 135/88; PULSE 56; RESP 17; TEMP 37.2; O2SAT 98
--- NOTE | 2024-03-14 13:41 | P.NPUDS_ITS ---
Diagnoses at Discharge Discharge Diagnosis (1) Acute psychosis: Status: Acute (2) Acute paranoia: Status: Acute (3) Essential (primary) hypertension: Status: Chronic (4) Raynaud's phenomenon: Status: Chronic (5) Hypothyroidism: Status: Chronic Qualifiers: Hypothyroidism type: other Qualified Code(s): E03.8 - Other specified hypothyroidism Reason for Visit Reason for Visit: MHE Brief History: History of Present Illness Lorna Schmitz is a 58 year old female who presented to the emergency de partment with the following report: Chief Complaint: Psychiatric Symptoms Stated Complaint: MHE Time Seen by Provider: 03/06/24 19:51 History of Present Illness: 58-year-old female with a history of hyp ertension who presents to the emergency room with psychiatric issues. She presents by ambulance. Her had called the ambulance. She is very paranoid and scared. Apparently she has been hallucinating. There is no documented history of any kind of psychiatric issues. states that she had had some short-term memory issues but recently had been functioning well doing housecleaning and other daily living things. They recently went to [place] and she had not taken her thyroid medication for a few days. Here in the emergency room she is very agitated. She is intent that she does not want to go on a roommate but rather room 7. She is very paranoid. Difficult to obtain any other history from. She was admitted to the neuropsychiatric unit for definitive treatment of those issues. She is unknown to [facility] psychiatry through inpatient or outpatient mental health services. She presented today as a very poor historian and unable to provide any significant history. The only history she was able to provide was the fact that she was having what appears to be auditory hallucinations at home and she was hearing voices outside of her front and back door and not really knowing what to do with those experiences. She identified the fact that she is unclear what was going on and could not give any other information other than the fact that she does live at home with her she reports that she has never had an experience like this before. She did give us permission to reach out to her to make sure that we can get some additional information about what led to this episode. Hospital Course Hospital Course Patient appeared quite paranoid initially but was started on Abilify and titrated up to a dose of 15 mg daily with noted improvement in regards to her thinking process. She showed significant reduction in paranoia and denied any hallucinations at the time of discharge. Prior to that time, the patient had shown evidence of appearing to be engaged in self talk and did appear to be responding to internal stimuli. During the hospitalization, the patient had routine laboratory studies which were within normal limits except for a few outliers.? Additionally, there was a general medical evaluation which was also within normal limits and revealed no new acute processes.? At the time of discharge, lethality was denied and psychosis was resolving.? Mood and anxiety were well managed.? The patient endorsed a plan to avoid all drugs of abuse and follow up with the aftercare recommendations of the treatment team.? The patient was evaluated and deemed to be absent credible lethality and had achieved the maximum benefit from an inpatient hospitalization, and so was discharged. ? Involuntary Hold Information 96 Hour Hold: 96 Hour Involuntary Admission: Yes 96 Hour Hold Ending Date: 03/12/24 96 Hour Hold Ending Time: 21:11 Mental Status Exam MSE Comments: This is a tall overweight versus obese, white female in hospital scrubs with limited grooming and improving eye contact. No abnormal movements except for mild psychomotor retardation. She was cooperative with exam in no acute distress on discharge. Speech was more productive with normal volume but some slight increased speech latency. Mood described as good. Her affect appeared euthymic. Thought process was linear. Thought content: Patient denied suicidal or homicidal ideation. There was less evidence of paranoia and she did not appear to be responding to internal stimuli. There was no ideas of reference. Attention and concentration were improved. Recent and remote memory was intact today. She was alert and oriented to person and place and time today. Insight was fair. Judgment and impulse control were improving. Discharge Data Studies Completed and Pending: Completed Studies During Hospitalization Category Date Time Status CT head wo con* 7 [id number] Stat Cat Scan 03/06/24 21:40 Completed Radiology Impressions Head CT 03/06/24 21:40 IMPRESSION: No acute intracranial abnormality. Laboratory Results WBC 6.91 10^3/uL (3.2 9-11.43) 03/09/24 09:20 RBC 4.53 10^6/uL (3.8 5-5.65) 03/09/24 09:20 Hgb 13.60 g/dL (11.27 -16.99) 03/09/24 09:20 Hct 41.9 % (36-47) 03/09/24 09:20 MCV 92.5 fl (85-98) 03/09/24 09:20 MCH 30.0 pg (27-33) 03/09/24 09:20 MCHC 32.5 g/dL (30-55) 03/09/24 09:20 RDW 12.7 % (12.1-15.1 ) 03/09/24 09:20 Plt Count 251 10^3/cmm (157 -399) 03/09/24 09:20 MPV 10.2 fL (7.4-10.4 ) 03/09/24 09:20 Neut % (Auto) 68.0 % 03/09/24 09:20 Lymph % (Auto) 21.7 % 03/09/24 09:20 [place] % (Auto) 7.1 % 03/09/24 09:20 Eos % (Auto) 2.7 % 03/09/24 09:20 Baso % (Auto) 0.4 % 03/09/24 09:20 Neut # (Auto) 4.69 10^3/uL (1.8 -7.7) 03/09/24 09:20 Lymph # (Auto) 1.5 10^3/uL (0.8- 4.8) 03/09/24 09:20 [place] # (Auto) 0.5 10^3/uL (0.2- 0.9) 03/09/24 09:20 Eos # (Auto) 0.2 10^3/uL (0.0- 0.8) 03/09/24 09:20 Baso # (Auto) 0.0 10^3/uL (0.0- 0.1) 03/09/24 09:20 Nucleated RBC % (a uto) 0 % 03/09/24 09:20 Nucleated RBCs # 0.0 /100WBC 03/09/24 09:20 Sodium 140 mmol/L (136-1 45) 03/09/24 09:20 Potassium 4.9 mmol/L (3.5-5 .1) 03/09/24 09:20 Chloride 99 mmol/L (98-107 ) 03/09/24 09:20 Carbon Dioxide 35 mmol/L (22-29) H 03/09/24 09:20 Anion Gap 10.9 (5-19) 03/09/24 09:20 BUN 11 mg/dL (6-20) 03/09/24 09:20 Creatinine 0.9 mg/dL (0.5-0. 9) 03/09/24 09:20 GFR Calculation 64.1 mL/min (90-1 30) L 03/09/24 09:20 Glucose 95 mg/dL (65-115) 03/09/24 09:20 Calculated Osmolal ity 289 mOsm/kg (285- 295) 03/09/24 09:20 Calcium 9.2 mg/dL (8.5-10 .5) 03/09/24 09:20 Total Bilirubin 0.3 mg/dL (0.15-1 .2) 03/09/24 09:20 AST 30 U/L (0-32) 03/09/24 09:20 ALT 31 U/L (0-33) 03/09/24 09:20 Alkaline Phosphata se 89 U/L (35-105) 03/09/24 09:20 Total Protein 6.3 g/dL (6.6-8.7 ) L 03/09/24 09:20 Albumin 4.0 g/dL (3.5-5.2 ) 03/09/24 09:20 Globulin 2.3 g/dL (1.3-4.6 ) 03/09/24 09:20 TSH 7.37 uIU/mL (0.27 -4.20) H 03/09/24 09:20 Free T4 1.09 ng/dL (0.82- 1.77) 03/09/24 09:20 Free T3 3.1 PG/ML (2.0-4. 4) 03/09/24 09:20 Urine Color Yellow (Yellow) 03/06/24 20:26 Urine Appearance Clear (CLEAR) 03/06/24 20:26 Urine pH 7.5 (5-7) 03/06/24 20:26 Ur Specific Gravit y 1.007 (1.005-1.0 30) 03/06/24 20:26 Urine Protein Negative (Negati ve) 03/06/24 20:26 Urine Glucose (UA) Negative (Normal ) 03/06/24 20:26 Urine Ketones Negative (Negati ve) 03/06/24 20:26 Urine Blood Negative (Negati ve) 03/06/24 20:26 Urine Nitrate Negative (Negati ve) 03/06/24 20: Urine Bilirubin Negative (Negati ve) 03/06/24 20: Urine Urobilinogen 1.0 mg/dL (Negati ve) 03/06/24 20:26 Ur Leukocyte Herminia ase Negative (Negati ve) 03/06/24 20:26 Urine RBC 0-2 /hpf (0-2) 03/06/24 20:26 Urine WBC 0-5 /hpf (0-5) 03/06/24 20:26 Ur Squamous Epith Cells 0-5 /hpf (0-5) 03/06/24 20: Amorphous Sediment Not Reportable 03/06/24 20: Urine Bacteria None seen /hpf (N ONE) 03/06/24 20: Hyaline Casts 0-4 /lpf H 03/06/24 20:26 Salicylates 0.4 mg/dL (3-10) L 03/06/24 21:34 Urine Opiates Scre en Negative ng/mL (N egative) 03/06/24 20:26 Acetaminophen < 5.0 ug/mL (10-3 0) L 03/06/24 21:34 Ur Barbiturates Sc reen Negative ng/mL (N egative) 03/06/24 20:26 Ur Phencyclidine S crn Negative ng/mL (N egative) 03/06/24 20:26 Ur Amphetamines Sc reen Negative ng/mL (N egative) 03/06/24 20:26 U Benzodiazepines Scrn Negative ng/mL (N egative) 03/06/24 20:26 Urine Cocaine Scre en Negative ng/mL (N egative) 03/06/24 20:26 U Marijuana (THC) Screen Negative ng/mL (N egative) 03/06/24 20: Ethyl Alcohol < 10 mg/dL (0-10) 03/06/24 21:34 Vitals: Last Vital Signs Temp 99 F 03/14/24 11:30 Pulse 56 L 03/14/24 11:30 Resp 17 03/14/24 11:30 BP 135/88 03/14/24 11:30 Pulse Ox 98 03/14/24 11:30 O2 Del Method Room Air 03/14/24 06:00 Discharge Plan Discharge Patient Disposition: Home Condition: Stable Prescriptions: New aripiprazole 15 mg tablet 15 mg PO DAILY 30 Days Qty: 30 1RF Continued losartan-hydrochlorothiazide 100-25 mg tablet 1 tab PO DAILY Qty: 90 1RF thyroid (pork) [[place] Thyroid] 90 mg tablet 90 mg PO DAILY Qty: 90 1RF (DME) Aerochamber MV Spacer See Rx Instructions .Route Qty: 1 2RF Rx Instructions: As directed mecobalamin (vitamin B12) [B12 Active] 1,000 mcg Tablet,Chewable 1,000 mcg PO DAILY Discharge Orders: Discharge Order (Routine); Ordered 03/14/24 Ordered By: Bruno Boone Referrals: [facility] [Outside] - 03/18/24 12:30 pm (Scheduled with Tami on 03/18/24 Check in time at 12:30 for paperwork. This will be a Tele visit in the [place] office. ) Ana Gupta, [employer] [Primary Care Provider] - Discharge Diet: Usual diet Discharge Activity: Resume usual activity Patient Instructions: Aripiprazole (By mouth), Brief Psychotic Disorder (DC), Hypothyroidism (DC), Opioid Safety Discharge Attestations NPU Time Spent in Discharge Care*: less than 30 min Specific Discharge Activities: Specific discharge activities: educating patient, discussing with lead case manager/social workers/dc planners and documenting/other paperwork Coding Level of Care Code Acute Code for Chg Fwd Diagnoses Acute psychosis F23 Acute paranoia F22 Essential (primary) hypertension I10 Raynaud's phenomenon I73.00 Other specified hypothyroidism E03.8 Hypothyroidism type: other
== END 2024-03-14 11:13 | disposition home or self-care (01) | DRG 885 ==
LOC: ER 21:31 → ER IP 23:11 → NP 03-07 12:24
PROVIDERS: Physician Assistant; Admitting Provider Psychiatry & Neurology Psychiatry; Emergency Provider Emergency Medicine; PCP Nurse Practitioner; Visit Provider Psychiatry & Neurology Psychiatry
DX: F23 Brief psychotic disorder (principal); F22 Delusional disorders; I10 Essential (primary) hypertension; I73.00 Raynaud's syndrome without gangrene; E03.9 Hypothyroidism, unspecified; Z68.30 Body mass index [BMI] 30.0-30.9, adult; E66.3 Overweight; Z85.828 Personal history of other malignant neoplasm of skin
CPT/HCPCS: 36415; 70450; 80053; 80306; 80307; 81001; 84439; 84443; 84481; 85025; 96372; 97150; 97165; 99285; J1200; J1630; J2060; J3486

== ENCOUNTER 2024-07-10 11:58 | Outpatient (CLI) | payer OTHER, SELFPAY ==
--- NOTE | 2024-07-10 12:00 | MM_ITS ---
WS: [id number] BILATERAL SCREENING DIGITAL TOMOSYNTHESIS MAMMOGRAM WITH CAD HISTORY: SCREENING COMPARISON: 10/16/2020 Bilateral CC and MLO views with tomosynthesis and synthetic mammography submitted. Computer aided detection analyzed. Breast composition: There are scattered areas of fibroglandular density. No suspicious masses, microcalcifications or architectural distortion. MM/MM scr BI tomosynthesis [id number] IMPRESSION: BI-RADS: 1 - Negative. FOLLOW UP: 1 Year Follow-up
== END 2024-07-10 11:59 | disposition home or self-care (01) ==
PROVIDERS: PCP Nurse Practitioner; Visit Provider Nurse Practitioner
DX: Z12.31 Encounter for screening mammogram for malignant neoplasm of breast (principal); R92.323 Mammographic fibroglandular density, bilateral breasts
CPT/HCPCS: 77063; 77067

== ENCOUNTER → 2025-04-22 12:04 | Outpatient (BNVA) | payer OTHER, SELFPAY | PROVIDERS: PCP Nurse Practitioner; Visit Provider Nurse Practitioner | DX: E03.8 Other specified hypothyroidism (principal) | CPT/HCPCS: 84439; 84443; 84481 ==